=== PATIENT | female | born 1960 | race Caucasian/White ===

== ENCOUNTER → 2025-05-17 | Outpatient (CLI) | payer BC, MEDICARE, SELFPAY ==
--- NOTE | 2025-05-17 16:16 | XR_ITS ---
Examination: Bilateral hips, AP pelvis, 5 views Technique: AP, lateral views both hips, AP pelvis, 5 views Exam date and time: May 17, 2025, 1625 hours INDICATIONS: Bilateral hip pain beginning 15 years ago FINDINGS: No right or left hip fracture or dislocation Moderate bilateral hip osteoarthritis Bones of the pelvis intact IMPRESSION: Moderate bilateral hip osteoarthritis
--- NOTE | 2025-05-17 16:16 | XR_ITS ---
EXAMINATION: Lumbar spine 3 views TECHNIQUE: AP lateral: Lateral lower lumbar spine 3 views Date and time: February 15, 2025, 1634 hours INDICATION: Low back pain beginning 15 years ago FINDINGS: Adequate alignment lumbar vertebral bodies No lumbar fracture. Moderate osteopenia. Diffuse lumbar disc narrowing, advanced L5-S1 IMPRESSION: Diffuse lumbar degenerative disc disease, advanced at L5-S1
== END | disposition home or self-care (01) ==
PROVIDERS: PCP Family Medicine; Referring Provider Nurse Practitioner Family; Visit Provider Nurse Practitioner Family
DX: M16.0 Bilateral primary osteoarthritis of hip (principal); M51.370 Other intervertebral disc degeneration, lumbosacral region with discogenic back pain only; M51.360 Other intervertebral disc degeneration, lumbar region with discogenic back pain only
CPT/HCPCS: 72100; 73523

== ENCOUNTER 2025-05-28 13:08 | Outpatient (RCR) | payer MEDICARE, SELFPAY ==
--- NOTE | 2025-05-28 14:06 | PTNOTE_ITS ---
PT OP Initial Eval Patient Information Outpatient Physical Therapy Treatment Date: 05/28/25 Visit Reasons: bilateral hip hip pain Medical Diagnosis: lumbar radiculopathy and bilateral hip joint pain Treatment Dx #1: same Start of Care: 05/28/25 Date of Onset: 2 months ago Smoking Status Smoking Status: Never smoker Initial Assessment Subjective: Pt is 65 yr old female who reports LBP that radiates to the LE's with LE weakness and pain. Increased pain with sitting and standing still and riding her horse makes hips feel stiff. PMH: none reported Imaging: Xrays Diffuse lumbar degenerative disc disease, advanced at L5-S1 Pt goal: to learn how to relieve the pain and be more flexible to ride like she wants to Objective: ?Trunk ArOM: ? B SB 50% of normal with pain ? Extension: 20% with mild pain around L4-5, L5-S1 ? Flexion: 10 from floor ? B rotation: 60% with pain ? TTP: moderate paraspinals L5-S1 ? Neuro: B SLR: negative JASMIN's: negative FADIR's: positive B Assessment: ? Pt presents with trunk flexion sensitivity and overlying myofascial pain ? and TTP around L5-S1 consistent with DDD. FADIR test was positive B consistent with hip OA and PT recommends further diagnostic imaging of B hips since hip pain seems to be localized. Pt requires skilled therapy in order to decrease pain and improve sitting/standing tolerance and has fair rehab potential. Eval?followed by HE[employer] printout. [employer] Goals 1. Ind with HEP ? 2. Improved sitting/standing tolerance to 30 minutes with <=4/10 LBP ? 3. Decreased lower paraspinal TTP from mod to min 4. Improved horse riding tolerance to at least 60 minutes with <=3/10 LBP and no ?increase in hip ssx ? Treatment Plan 90 day POC ?1. Manual therapy ? 2. Therex ? 3. Modalities as indicated, moist heat, ice, estim, mechanical traction Frequency and Duration: 1-2x a week for 12 visits Certification Dates: 05/28/25 to 08/26/24 Procedure Charges OP PT Eval Mod Complex 30 minutes: Yes
== END 2025-06-06 23:59 | disposition home or self-care (01) ==
LOC: CPTX 13:08
PROVIDERS: PCP Nurse Practitioner Family; Referring Provider Nurse Practitioner Family; Visit Provider Nurse Practitioner Family
DX: M54.16 Radiculopathy, lumbar region (principal); M25.552 Pain in left hip; M25.551 Pain in right hip
CPT/HCPCS: 97162